=== PATIENT | male | born 1940 | race Caucasian/White ===

== ENCOUNTER 2021-08-19 17:25 | Emergency (ER) | payer OTHER ==
[~2021-08-19] VITALS: Ht 185.4 cm; Wt 10.0 kg
[2021-08-19] MEDS ORDERED: CALCIUM 500 +1 EAC2 PO (17:55)
[2021-08-19] MEDS ORDERED: ELIQUIS5 MG PO (17:55)
[2021-08-19] MEDS ORDERED: ZYLOPRIM100 M1 PO (17:55)
[2021-08-19] MEDS ORDERED: ALTOPREV40 MG (17:56)
[2021-08-19] MEDS ORDERED: TAMS0.4C PO (17:56)
[2021-08-19] MEDS ORDERED: VASOTEC5 MG PO (17:56)
[2021-08-19] MEDS ORDERED: TOPROL XL100 M1 PO (17:57)
[2021-08-19] MEDS ORDERED: ACID REDUCER20 M1 (17:57)
[2021-08-19] MEDS ORDERED: TIKOSYN250 MCG PO (17:58)
[2021-08-19] MEDS ORDERED: TYLENOL325 MG PO (17:58)
== END 2021-08-19 20:44 | disposition home or self-care (01) ==
LOC: ER 17:25
DX: M25.562 Pain in left knee (principal)